=== PATIENT | male | born 1965 | race Caucasian/White ===

== ENCOUNTER 2016-11-19 07:51 | Emergency (ER) | payer OTHER ==
[2016-11-19] MEDS ORDERED: BUPIVACAINE HCL/PF 0.5% 30 ML VIAL ONE (08:35)
[2016-11-19] MEDS ORDERED: DIPH,PERTUSS(ACELL),TET VAC/PF 0.5 ML VIAL IM ONE (08:35)
[2016-11-19] MEDS ORDERED: CEPHALEXIN MONOHYDRATE 250 MG CAPSULE PO ONE (09:40)
--- NOTE | 2016-11-19 09:45 | ER NURSING DOCUMENTATION ---
Nurse's Notes [facility] Name:Roverto Toscano Age:50 yrs Sex:Male :1965 Arrival Date:11/19/2016 Time:07:51 Bed1 Private MD: Diagnosis:Finger Laceration Presentation: 11/19 07:53 Acuity: YARI 4 tg 08:02 Presenting complaint: Patient states: Lac on left middle index finger from opening a tg can of food. Transition of care: patient was not received from another setting of care. Notified ED Physician of patient's arrival and CC Dr. Delacruz notified. 08:02 Method Of Arrival: Private Vehicle tg Triage Assessment: 08:03 General: Appears in no apparent distress, Behavior is cooperative. tg 08:09 Pain: Complains of pain in palmar aspect of middle phalanx of left index finger. tg Cardiovascular: Capillary refill < 3 seconds in left fingers. Injury Description: Laceration sustained to palmar aspect of middle phalanx of left index finger is 0.5 to 2.5 cm long, is bleeding a small amount. 08:48 Musculoskeletal: Musculoskeletal: Capillary refill < 3 seconds Range of motion intact tg in all extremities. Pt reports numbness on side of finger tip distal to lac. Historical: - Allergies: No known drug Allergies; - Home Meds: 1. Omeprazole Oral - PMHx: GERD; - PSHx: acl; - Tetanus: > 10 years. - Ebola Screening: : Patient negative for fever greater than or equal to 101.5 degrees Fahrenheit, and additional compatible Ebola Virus Disease symptoms. Patient denies exposure to infectious person. Patient denies travel to an Ebola-affected area in the 21 days before illness onset. No symptoms or risks identified at this time. . - Immunization history: Flu Vaccine >1 year. - Social history: Smoking status: Patient states was never smoker of tobacco. Screenin:03 Infectious Disease Risk Unable to Obtain. Abuse screen: Denies threats or abuse. Denies tg injuries from another. Nutritional screening: No deficits noted. Assessment: 08:10 See Triage Assessment done by same RN. tg 08:49 Reassessment: While irrigating wound (by Dr. Delacruz), arteriole began pumping a small tg stream of blood. Bleeding was managed immediately with direct pressure and elevation. During suturing, a tourniquet was placed by Dr. Delacruz proximal to the bleeding on the index finger.. Vital Signs: 07:59 BP 131 / 93; Pulse 64; Resp 16; Pulse Ox 92% on R/A; tg ED Course: 07:52 Patient arrived in ED. ds 07:53 Rylan Zambrano, RN is Primary Nurse. tg 07:53 Triage completed. tg 08:03 Arm band placed on. tg 08:03 Valuables Remains with patient. tg 08:14 Vinny Delacruz MD is Attending Physician. tl1 08:52 Assist Provider Assist provider with laceration repair on palmar aspect of middle tg phalanx of left index finger that was 2.5 cm. or less using sutures. Set up tray. Performed by Vinny Delcaruz MD Patient tolerated well. 09:43 Wound care to laceration was dressed with bacitracin Tube Gauze Telfa. 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 Exp: 05/31/2018. Lot #: [id number]. } Route: IM; Site: right deltoid; 09:22 Follow up: Response: No adverse reaction tg 08:40 Drug: Marcaine (0.5 %) 10 ml; Route: Infiltration; tg 09:22 Follow up: Response: No adverse reaction tg 09:43 Drug: Keflex 500 mg; Route: PO; tg 09:43 Follow up: Response: Medication administered at discharge. tg Outcome: 09:07 Discharge ordered by . tl1 09:43 Discharged to home ambulatory, with family. tg 09:43 Condition: stable 09:43 Discharge Assessment: Patient awake, alert and oriented x 3. No cognitive and/or functional deficits noted. Patient verbalized understanding of disposition instructions. 09:43 Instructed on discharge instructions, follow up and referral plans. 09:45 Patient left the ED. tg 11/20 13:33 Discharge F/U Call: Spoke with: patient. Are you having any pain? no. Did your lb discharge instructions answer all of your questions? yes Have you made a f/u appointment? yes Overall Care on a scale of 1-10 with 10 being the best care, you rate our care as: the rating of 10. Further F/U necessary? None needed Signatures: Rylan Zambrano, CURTIS RN tg Srot, Bridgette, Reg Reg ds Vinny Delacruz MD MD tl1 Rekha Hodge
--- NOTE | 2016-11-19 09:45 | ER PHYSICIAN DOCUMENTATION ---
Physician Documentation [facility] Name:Roverto Toscano Age:50 yrs Sex:Male :1965 Arrival Date:11/19/2016 Time:07:51 Bed1 Private MD: Vinny Dietz Disposition: 11/19/16 09:07 Discharged to Home/Self Care. Impression: Finger Laceration. - Condition is Good. - Discharge Instructions: FINGER LACERATION - LACERATION, Hand. - Prescriptions for Keflex 500 mg Oral - take 1 capsule by ORAL route every 6 hours for 3 days; 12 capsule. - Medical Reconciliation form form. - Follow up: Private Physician; When: 2 - 3 days. - Problem is new. - Symptoms have improved. - Notes: TRY TO SEE A HAND SURGEON WITHIN A WEEK. YOU MIGHT TRY DR HEBER SALAZAR OR DR LALO CABRALESAT [facility] HPI: 11/19 08:16 This 50 yrs old Male presents to ER via Private Vehicle with complaints of tl1 Finger Injury - LEFT INDEX. 08:16 The patient or guardian reports a laceration, clean. The complaints affect the left tl1 index finger , volar aspect. Context: The problem was sustained outdoors, resulted from trying to catch a can lid.. Onset: The symptom(s)/episode began/occurred suddenly, just prior to arrival. Historical: - Allergies: No known drug Allergies; - Home Meds: 1. Omeprazole Oral - PMHx: GERD; - PSHx: acl; - Tetanus: > 10 years. - Ebola Screening: : Patient negative for fever greater than or equal to 101.5 degrees Fahrenheit, and additional compatible Ebola Virus Disease symptoms. Patient denies exposure to infectious person. Patient denies travel to an Ebola-affected area in the 21 days before illness onset. No symptoms or risks identified at this time. . - Immunization history: Flu Vaccine >1 year. - Social history: Smoking status: Patient states was never smoker of tobacco. ROS: 08:18 MS/extremity: Positive for laceration. tl1 08:18 All other systems are negative. Exam: 08:19 Constitutional: This is a well developed, well nourished patient who is awake, alert, tl1 and in no acute distress. 08:19 Head/Face: Normocephalic, atraumatic. tl1 08:19 Neck: ROM/movement: is normal. 08:19 Cardiovascular: Rate: normal. 08:19 Respiratory: Respirations: normal. 08:19 Abdomen/GI: Inspection: 08:19 Musculoskeletal/extremity: Extremities: grossly normal except: noted in the palmar aspect of middle phalanx of left index finger: laceration, 3 cm, deep, skiving V shaped distally based flalp.. 08:19 Skin: see above. Vital Signs: 07:59 BP 131 / 93; Pulse 64; Resp 16; Pulse Ox 92% on R/A; tg Procedures: 09:01 Nerve block: (digital) of dorsal aspect of proximal phalanx of left index finger tl1 Medication: Marcaine 0.5%, Amount: 3 mls were injected, Effect: the patient's symptoms are improved, Set up for procedure. Performed by Vinny Delacruz MD Patient tolerated well. Laceration: 09:01 Wound Repair of 3.0cm ( 1.2in ) subcutaneous laceration to left hand and palmar aspect tl1 of middle phalanx of left index finger. Skin/tissue flap noted.. Arterial bleeding noted.. Numb with absent 2 point discrimination onradial aspect of index finger, distal to the laceration. Neuro:Numbness distal to wound.. Vascular:Intact distal to wound. Tendon:Intact distal to wound. Anesthesia: Wound infiltrated with 3 mls of 0.5% marcaine. Wound prep: Extensive cleansing, Wound explored, Copious irrigation. Skin closed with 5 4-0 Ethilon using Interrupted sutures. Dressed with Bacitracin, 4x4's, tube gauze. Patient tolerated well. MDM: 08:15 Patient medically screened. tl1 09:06 Data reviewed: vital signs, nurses notes, and as a result, I will discharge patient. tl1 Counseling: I had a detailed discussion with the patient and/or guardian regarding: the historical points, exam findings, and any diagnostic results supporting the discharge/admit diagnosis, the need for outpatient follow up, to return to the emergency department if symptoms worsen or persist or if there are any questions or concerns that arise at home. Medication response: The patient's symptoms have improved. Response to treatment: the patient's symptoms have markedly improved after treatment. 11/19 08:51 Order name: Wound Care; Complete Time: 08:52 tg Dispensed Medications: 08:30 Drug: Adacel 0.5 ml; {Retail Associate Manager Bilingual: [employer] ([employer]). Exp: 05/31/2018. Lot #: [id number]. } Route: IM; Site: right deltoid; 09:22 Follow up: Response: No adverse reaction tg 08:40 Drug: Marcaine (0.5 %) 10 ml; Route: Infiltration; tg :22 Follow up: Response: No adverse reaction tg 09:43 Drug: Keflex 500 mg; Route: PO; tg 09:43 Follow up: Response: Medication administered at discharge. tg Signatures: Rylan Zambrano RN RN tg Vinny Delacruz MD MD tl1
== END 2016-11-19 09:45 | disposition home or self-care (01) ==
LOC: ER 07:51
DX: S61.211A Laceration without foreign body of left index finger without damage to nail, initial encounter (principal); W26.8XXA Contact with other sharp object(s), not elsewhere classified, initial encounter; Y92.89 Other specified places as the place of occurrence of the external cause
CPT/HCPCS: 13132; 64450; 90471; 99283